=== PATIENT | female | born 1965 | race Caucasian/White ===

== ENCOUNTER 2019-03-07 12:49 | Emergency (ER) | payer MEDICAID, OTHER, SELFPAY ==
[~2019-03-07] VITALS: Ht 154.9 cm; Wt 71.0 kg
[2019-03-07 13:26] LABS: BASOPHILS # (AUTO) 0.03 x10^3/uL (0-0.1); BASOPHILS % (AUTO) 0 % (0-1); EOSINOPHILS # (AUTO) 0.08 x10^3/uL (0-0.4); EOSINOPHILS % (AUTO) 1 % (1-7); LYMPHOCYTES # (AUTO) 1.61 x10^3/uL (1-3.4); LYMPHOCYTES % (AUTO) 21 % (22-44); MD NO; MEAN CORPUSCULAR HEMOGLOBIN 28.8 pg (27.0-34.8); MEAN CORPUSCULAR HGB CONC 33.2 g/dL (32.4-35.8); MEAN CORPUSCULAR VOLUME 86.7 fL (80-100); MONOCYTES # (AUTO) 0.42 x10^3/uL (0.2-0.8); MONOCYTES % (AUTO) 6 % (2-9); NEUTROPHILS # (AUTO) 5.42 x10^3/uL (1.8-6.8); NEUTROPHILS % (AUTO) 72 % (42-75); PLATELET COUNT 356 x10^3/uL (130-400); RED BLOOD COUNT 4.64 x10^6/uL (3.82-5.3); RED CELL DISTRIBUTION WIDTH 13.6 % (9.6-15.2)
[2019-03-07 13:38] LABS: ALBUMIN 3.8 g/dL (3.4-5.0); ANION GAP 10 mmol/L (5-15); CALCIUM 8.4 mg/dL (8.5-10.1); CHLORIDE 111 mmol/L (98-107)
[2019-03-07 13:42] LABS: ALANINE AMINOTRANSFERASE 20 U/L (12-78); ALKALINE PHOSPHATASE 70 U/L (45-117); BILIRUBIN,TOTAL 0.5 mg/dL (0.2-1.0); CREATININE 1.01 mg/dL (0.55-1.02)
--- NOTE | 2019-03-07 14:13 | NUR ---
TASK RN: CEFERINO COLLECTED AND SENT FROM [facility]
[2019-03-07 14:28] LABS: MICROSCOPIC NOT IND
[2019-03-07 14:39] LABS: AMPHETAMINE SCREEN, URINE Negative (Negative); BARBITURATE SCREEN, URINE Negative (Negative); BENZODIAZEPINE SCREEN, URINE Negative (Negative); CANNABINOID SCREEN, URINE Negative (Negative); COCAINE SCREEN, URINE Negative (Negative); METHADONE SCREEN, URINE Negative (Negative); OPIATE SCREEN, URINE Negative (Negative)
--- NOTE | 2019-03-07 15:15 | NUR ---
TO ROOM AT THIS TIME
--- NOTE | 2019-03-07 15:19 | NUR ---
PT BIB EMS. PT STATES SHE USED A VAPE PEN TODAY AND BECAME LIGHT HEADED AND GROGGY. CONCENRED THERE WAS A UNKNOWN SUBSTANCE IN VAPE PEN. PT DENIES ANY ELLICIT DRUG USE. PT IS A&OX4, NEURO INTACT. STATES "I JUST FEEL OUT OF IT." DENIES ANY RECENT FALL OR TRAUMA. [place] FAMILY AT BED[place]IDE. Addendum: 03/07/19 at 1522 by MAYDA PT BIB EMS. PT STATES SHE USED A VAPE PEN TODAY AND BECAME LIGHT HEADED AND GROGGY. CONCENRED THERE WAS A UNKNOWN SUBSTANCE IN VAPE PEN. PT DENIES ANY ILLICIT DRUG USE. PT IS A&OX4, NEURO INTACT. STATES "I JUST FEEL OUT OF IT." DENIES ANY RECENT FALL OR TRAUMA. [place] AT [place]IDE.
[2019-03-07 16:39] VITALS: BP 133/77
--- NOTE | 2019-03-07 16:40 | NUR ---
Patient/Caregiver given discharge instructions and they have confirmed that they understand the instructions. Patient ambulatory with steady gait. Pt left with all personal belongings.
== END 2019-03-07 16:41 | disposition home or self-care (01) ==
LOC: ED 16:35
DX: R41.82 Altered mental status, unspecified (principal); I10 Essential (primary) hypertension; E07.9 Disorder of thyroid, unspecified; E78.00 Pure hypercholesterolemia, unspecified; Z90.49 Acquired absence of other specified parts of digestive tract; Z90.710 Acquired absence of both cervix and uterus
CPT/HCPCS: 36415; 80053; 80307; 81003; 85025; 99283